=== PATIENT | female | born 1980 | race African-American/Black ===

== ENCOUNTER 2019-01-13 06:44 | Day surgery (SDC) | payer BC, MEDICAID ==
[2019-01-13] MEDS ORDERED: METHYLERGONOVINE MALEATE INJ/PF 0.2 MG/1 ML AMPULE ONE (07:14)
[2019-01-13] MEDS ORDERED: MISOPROSTOL 0.2 MG TABLET ONE (07:14)
[2019-01-13] MEDS ORDERED: DOXYCYCLINE HYCLATE 100 MG in DEXTROSE 5%-WATER 250 ML IV PRN (07:25)
[2019-01-13] MEDS ORDERED: ALBUTEROL SULFATE 0.083% NEB 2.5 MG/3 ML AMPUL NEB ONE (07:54)
[2019-01-13 07:56] LABS: HEMATOCRIT 36.8 % (36.0-47.0); MEAN CORPUSCULAR HEMOGLOBIN 24.8 pg (27.0-33.4); MEAN CORPUSCULAR HGB CONC 32.5 g/dL (32.0-36.0); MEAN CORPUSCULAR VOLUME 76 fl (80-97); PLATELET COUNT 202 10^3/uL (150-450); RED BLOOD COUNT 4.83 10^6/uL (3.72-5.28); RED CELL DISTRIBUTION WIDTH 13.6 % (11.5-14.0); WHITE BLOOD COUNT 7.3 10^3/uL (4.0-10.5)
[2019-01-13 08:06] LABS: APPEARANCE,URINE CLEAR; BILIRUBIN,URINE NEGATIVE (NEGATIVE); COLOR,URINE STRAW; GLUCOSE, URINE NEGATIVE (NEGATIVE); KETONES,URINE NEGATIVE (NEGATIVE); LEUKOCYTE ESTERASE,URINE NEGATIVE (NEGATIVE); NITRITE,URINE NEGATIVE (NEGATIVE); PROTEIN,URINE NEGATIVE (NEGATIVE); URINE SPECIFIC GRAVITY 1.012; UROBILINOGEN,URINE NEGATIVE mg/dL (<2.0)
[2019-01-13] MEDS ORDERED: METOCLOPRAMIDE HCL INJ/PF 10 MG/2 ML SDV ONE (08:14)
[2019-01-13] MEDS ORDERED: FAMOTIDINE INJ/PF 20 MG/2 ML SDV IV ONE (08:14)
[2019-01-13] MEDS ORDERED: MIDAZOLAM 2 MG/2 ML INJ ONE ×2 (08:20→08:42)
[2019-01-13] MEDS ORDERED: ONDANSETRON HCL INJ/PF 4 MG/2 ML SDV ONE (08:42)
[2019-01-13] MEDS ORDERED: OXYTOCIN 10 UNIT/ML VIAL ONE (08:42)
[2019-01-13] MEDS ORDERED: PROPOFOL INJ 200 MG/20 ML VIAL IV ONE (08:42)
[2019-01-13] MEDS ORDERED: ACETAMINOPHEN 1,000 MG/100 ML RTUPB IV ONE (08:42)
[2019-01-13] MEDS ORDERED: FENTANYL CITRATE INJ/PF 100 MCG/2 ML AMPUL ONE (08:42)
[2019-01-13] MEDS ORDERED: DIPHENHYDRAMINE HCL 50 MG/ML VIAL IV PRN (09:02)
[2019-01-13] MEDS ORDERED: PROMETHAZINE HCL INJ 25 MG/1 ML VIAL IV PRN ×2 (09:02)
[2019-01-13] MEDS ORDERED: MEPERIDINE HCL/PF INJ 25 MG/1 ML DISP.SYRIN IV PRN (09:02)
[2019-01-13] MEDS ORDERED: FENTANYL CITRATE INJ/PF 100 MCG/2 ML AMPUL IV PRN ×3 (09:02)
[2019-01-13] MEDS ORDERED: MORPHINE SULFATE 10 MG/ML INJ IV PRN (09:02)
[2019-01-13] MEDS ORDERED: IPRATROPIUM/ALBUTEROL 0.5-2.5 MG/3 ML AMPUL NEB ONE (09:30)
--- NOTE | 2019-01-13 09:37 | Operative Report ---
Operative Report DATE OF SURGERY: 01/13/19 PREOPERATIVE DIAGNOSIS: 1. Blighted ovum at 8 weeks. 2. Tobacco use. 3. Rh +. 4. Asthma POSTOPERATIVE DIAGNOSIS: Same OPERATION: Suction D&C SURGEON: JONAH WILKES ANESTHESIA: GA TISSUE REMOVED OR ALTERED: Products of conception COMPLICATIONS: None ESTIMATED BLOOD LOSS: 100 ml INTRAOPERATIVE FINDINGS: Uterus sounded 10 cm; 8 mm curved Indian curette used; moderate amounts of products of conception PROCEDURE: The patient was taken to the Operating Room where general anesthesia was obtained without difficulty. She was prepped and draped in the normal sterile fashion in the dorsal lithotomy position. Exam under anesthesia was performed and noted above. A speculum was placed in the vagina. The anterior cervix was grasped with a single-tooth tenaculum and the uterus sounded to 10 cm. The cervix was noted to be closed at the beginning of the procedure. Sequential dilators were then used to dilate the cervix to accommodate the 8 mm suction curet curved. The 8 mm curved suction curet was gently advanced in the usual fashion and good return of tissue. The suction device was then activated and the curet rotated to clear the uterus of the products of conception. A sharp curettage was then performed. The suction device was then gently reintroduced and activated and the curet was rotated to clear the uterus of conception which were loosened with the recent sharp curettage. The sharp curettage was then performed again until a gritty texture was noted and the cavity was felt to be empty of further tissue. At this time there was minimal bleeding noted from the cervix. All instruments were removed from the patient's cervix and vagina. The tenaculum site was hemostatic. Sponge, lap and instrument counts are correct 2. Doxycycline 100 mg IV was given perioperatively. The patient was also given Cytotec 800 mcg per rectum at the end of the procedure. The patient tolerated the procedure well and was taken to the recovery area awake and in stable condition.
[2019-01-13] MEDS ORDERED: DEXAMETHASONE SOD PHOSPHATE INJ 4 MG/1 ML VIAL ONE (10:00)
[2019-01-13] MEDS ORDERED: KETOROLAC TROMETHAMINE 60 MG/2 ML SDV ONE (10:00)
[2019-01-13] MEDS ORDERED: SUCCINYLCHOLINE CHLORIDE INJ 200 MG/10 ML VIAL ONE (10:00)
[2019-01-13] MEDS ORDERED: OXYCODONE-ACETAMINOPHEN 5-325 MG TABLET ONE (10:31)
[2019-01-13 15:48] VITALS: BP 123/81
== END 2019-01-13 11:40 | disposition home or self-care (01) ==
LOC: OROUT 06:44
PROVIDERS: ATTEND Obstetrics & Gynecology
DX: O02.1 Missed abortion (principal); Z79.899 Other long term (current) drug therapy; Z79.51 Long term (current) use of inhaled steroids; F17.210 Nicotine dependence, cigarettes, uncomplicated; J45.909 Unspecified asthma, uncomplicated
CPT/HCPCS: 86900; 86901; 36415; 86850; 85027; 81001; 88305 ×2; 94640; 59820; J2250; J1100; J3490; J1885; J3010; J2765; J2590; J0330; J2405; J7060; J2704; S0028; J7620; J0131; 1965; J2210